=== PATIENT | male | born 1980 | race African-American/Black ===

== ENCOUNTER 2018-09-28 12:23 | Emergency (ER) | payer SELFPAY ==
[2018-09-28 13:36] LABS: #Basophils 0.1 thou/uL (0.0-0.2); #Eosinphils 0.4 thou/uL (0.0-0.7); #Monocytes 0.5 thou/uL (0.11-0.59); #Neutrophils 2.5 thou/uL (1.40-6.50); %Basophils 2.1 % (0.0-1.0); %Eosinophils 6.2 % (0.0-10.0); %Lymphocytes 45.7 % (21.0-51.0); %Monocytes 6.9 % (0.0-10.0); %Neutrophils 39.1 % (42.0-75.0); Hemoglobin 15.5 g/dL (14.0-18.0); Mean Corpuscular HGB CONC 32.1 g/dL (32.0-36.0); Mean Corpuscular Hemoglobin 28.6 pg (27.0-31.0); Mean Corpuscular Volume 88.9 fL (78.0-98.0); Mean Platelet Volume 7.8 fL (7.4-10.4); Platelet Count 254 thou/uL (130-400); RBC Distribution Width 14.2 % (11.5-14.5); Red Blood Cell (RBC) Count 5.41 mill/uL (4.70-6.10); White Blood Cell (WBC) Count 6.5 thou/uL (4.8-10.8)
--- NOTE | 2018-09-28 13:49 | RAD ---
CHEST 1 VIEW: Date: 09/28/18 Time: 1327 hours HISTORY: Chest pain. FINDINGS: Comparison made with exam of 06/28/14. The heart size is normal. There is scarring of the left costophrenic angle. No focal areas of consoli dation, pneumothoraces, or pleural effusions are seen. IMPRESSION: No acute process. POS: [facility]
[2018-09-28 13:59] LABS: ALT (SGPT) 25 U/L (8-55); AST (SGOT) 40 U/L (5-34); Albumin 4.1 g/dL (3.5-5.0); Alkaline Phosphatase 44 U/L (40-150); Anion Gap 12 mmol/L (10-20); BUN (Urea Nitrogen) 13 mg/dL (8.9-20.6); Bilirubin, Total 0.2 mg/dL (0.2-1.2); CK (CPK) 2751 U/L (30-200); Calc. Creatinine Clearance 0 mL/min (70-130); Calcium 9.1 mg/dL (7.8-10.44); Carbon Dioxide 24 mmol/L (22-29); Chloride 105 mmol/L (98-107); Estimated GFR-MDRD Greater than 90; Globulin 2.5 g/dL (2.4-3.5); Glucose 88 mg/dL (70-105); Potassium 4.4 mmol/L (3.5-5.1); Protein, Total 6.6 g/dL (6.0-8.3); Sodium 137 mmol/L (136-145)
[2018-09-28 14:14] LABS: CKMB 8.7 ng/mL (0-6.6)
[2018-09-28] MEDS ORDERED: Nitroglycerin 0.4 MG TAB 1 EACH ONE (14:17)
== END 2018-09-28 17:29 | disposition left against medical advice (07) ==
LOC: ERS 12:23
DX: R07.89 Other chest pain (principal); I10 Essential (primary) hypertension; F17.290 Nicotine dependence, other tobacco product, uncomplicated
CPT/HCPCS: 36415; 71045; 80053; 82550; 82553; 84484; 85025; 93005; 94760; 96360

== ENCOUNTER 2019-04-18 21:37 | Emergency (ER) | payer OTHER, SELFPAY ==
--- NOTE | 2019-04-18 22:31 | RAD ---
XR Chest 1 View Portable HISTORY: Chest pain and hypertension. COMPARISON: 09/28/2018 study. FINDINGS: Heart size and mediastinum are within normal limits. Slight elevation the left hemidiaphrag m with chronic blunting to the left costophrenic angle. The right lung is clear. IMPRESSION: No active intrathoracic
[2019-04-18 22:48] LABS: Hemoglobin 13.5 g/dL (14.0-18.0); Mean Corpuscular HGB CONC 32.3 g/dL (32.0-36.0); Mean Corpuscular Hemoglobin 26.8 pg (27.0-31.0); Mean Platelet Volume 8.6 fL (7.4-10.4); Platelet Count 240 thou/uL (130-400); RBC Distribution Width 13.7 % (11.5-14.5); Red Blood Cell (RBC) Count 5.05 mill/uL (4.70-6.10); White Blood Cell (WBC) Count 5.6 thou/uL (4.8-10.8)
[2019-04-18 23:09] LABS: ALT (SGPT) 21 U/L (8-55); AST (SGOT) 35 U/L (5-34); Albumin 4.6 g/dL (3.5-5.0); Alkaline Phosphatase 49 U/L (40-150); Anion Gap 12 mmol/L (10-20); BUN (Urea Nitrogen) 9 mg/dL (8.9-20.6); Bilirubin, Total 0.3 mg/dL (0.2-1.2); Calc. Creatinine Clearance 0 mL/min (70-130); Calcium 9.6 mg/dL (7.8-10.44); Carbon Dioxide 26 mmol/L (22-29); Chloride 105 mmol/L (98-107); Estimated GFR-MDRD 80; Globulin 2.5 g/dL (2.4-3.5); Glucose 84 mg/dL (70-105); Lipase 30 U/L (8-78); Potassium 4.5 mmol/L (3.5-5.1); Protein, Total 7.1 g/dL (6.0-8.3); Sodium 138 mmol/L (136-145)
[2019-04-18 23:15] LABS: Eosinophils 2 % (0-10); Hypochromia SLIGHT = 6-15 cells (100X) (0-5/hpf); Lymphocytes 48 % (21-51); MDiff Complete? YES; Monocytes 12 % (0-10); Neutrophil 38 % (42-75); Platelet Morphology Comment Appears Adequate
[2019-04-19 01:55] LABS: Troponin I Less than 0.010 ng/mL (< 0.028)
== END 2019-04-19 02:51 ==
LOC: ERS 21:37
DX: R07.9 Chest pain, unspecified (principal); R42 Dizziness and giddiness; F41.9 Anxiety disorder, unspecified; F17.290 Nicotine dependence, other tobacco product, uncomplicated
CPT/HCPCS: 36415; 71045; 80053; 83690; 84484; 85025; 93005

== ENCOUNTER 2019-10-07 18:34 | Emergency (ER) | payer SELFPAY ==
[2019-10-07 20:06] LABS: #Basophils 0.1 thou/uL (0.0-0.2); #Eosinphils 0.6 thou/uL (0.0-0.7); #Monocytes 0.6 thou/uL (0.11-0.59); #Neutrophils 3.5 thou/uL (1.40-6.50); %Basophils 1.6 % (0.0-1.0); %Lymphocytes 37.8 % (21.0-51.0); %Monocytes 7.6 % (0.0-10.0); %Neutrophils 44.9 % (42.0-75.0); Hemoglobin 13.5 g/dL (14.0-18.0); Mean Corpuscular HGB CONC 31.6 g/dL (32.0-36.0); Mean Corpuscular Hemoglobin 26.9 pg (27.0-31.0); Mean Corpuscular Volume 85.1 fL (78.0-98.0); Mean Platelet Volume 8.8 fL (7.4-10.4); Platelet Count 286 thou/uL (130-400); RBC Distribution Width 15.2 % (11.5-14.5); Red Blood Cell (RBC) Count 5.03 mill/uL (4.70-6.10); White Blood Cell (WBC) Count 7.8 thou/uL (4.8-10.8)
[2019-10-07 20:32] LABS: ALT (SGPT) 15 U/L (8-55); AST (SGOT) 22 U/L (5-34); Albumin 4.3 g/dL (3.5-5.0); Alkaline Phosphatase 44 U/L (40-110); Anion Gap 11 mmol/L (10-20); BUN (Urea Nitrogen) 13 mg/dL (8.9-20.6); Bilirubin, Total 0.2 mg/dL (0.2-1.2); Calc. Creatinine Clearance 0 mL/min (70-130); Calcium 8.9 mg/dL (7.8-10.44); Carbon Dioxide 28 mmol/L (22-29); Chloride 107 mmol/L (98-107); Estimated GFR-MDRD 64; Globulin 2.4 g/dL (2.4-3.5); Glucose 82 mg/dL (70-105); Protein, Total 6.7 g/dL (6.0-8.3); Sodium 142 mmol/L (136-145)
[2019-10-07 20:34] LABS: Acetaminophen Less than 6.0 mcg/mL (10.0-30.0); Alcohol Less than 10 mg/dL (Less than 10); CK (CPK) 735 U/L (30-200); Salicylate Less than 8.0 mg/dL (15.0-30.0)
[2019-10-07 20:42] LABS: Bilirubin Negative (Negative); Blood, Urine Negative (Negative); Clarity Turbid (Clear); Glucose, Urine (Dipstick) Normal (Negative); Leukocyte Negative Leu/uL (Negative); Nitrite Negative (Negative); Protein, Urine (Dipstick) 20 mg/dL (Neg-Trace); Urobilinogen 3 mg/dL (Less than 2)
[2019-10-07 20:57] LABS: Amphetamine Not Detected (NotDetected); Barbiturates Screen Not Detected (NotDetected); Benzodiazepine Screen Not Detected (NotDetected); Cocaine Metabolite Screen Not Detected (NotDetected); Medtox Control Line Valid? VALID (VALID); Medtox Reader # READER 4; Methadone Not Detected (NotDetected); Methamphetamine Not Detected (NotDetected); Opiate Screen Not Detected (NotDetected); Oxycodone Screen Not Detected (NotDetected); Phencyclidine (PCP) Not Detected (NotDetected); THC/Cannabinoid Screen Not Detected (NotDetected); Tricyclic Screen Detected (NotDetected)
[2019-10-07] MEDS ORDERED: hydrOXYzine Pamoate 25 mg Capsule ONE (23:01)
[2019-10-08] MEDS ORDERED: Nicotine 14 MG PATCH ONE ×2 (00:06→22:38)
[2019-10-08] MEDS ORDERED: Acetaminophen 325 MG TAB ONE (18:46)
[2019-10-09] MEDS ORDERED: diphenhydrAMINE 25 MG CAP ONE (00:36)
[2019-10-09] MEDS ORDERED: Bupropion 150 MG XL TAB PO SCH (09:00)
[2019-10-09] MEDS ORDERED: QUEtiapine Fumarate ER 50 MG TAB PO SCH ×2 (09:00→21:00)
[2019-10-09] MEDS ORDERED: Ziprasidone 60 MG CAP PO SCH (09:00)
== END 2019-10-10 20:38 ==
LOC: ERS 18:34
DX: R45.851 Suicidal ideations (principal); F41.9 Anxiety disorder, unspecified; F32.9 Major depressive disorder, single episode, unspecified; F20.9 Schizophrenia, unspecified; F17.210 Nicotine dependence, cigarettes, uncomplicated; Z79.899 Other long term (current) drug therapy
CPT/HCPCS: 36415; 80053; 80306; 80307; 81003; 82550; 84443; 85025; 93005; Q0177

== ENCOUNTER 2019-10-26 22:02 | Emergency (ER) | payer SELFPAY ==
[2019-10-26] MEDS ORDERED: Azithromycin 250 MG TAB ONE (22:51)
[2019-10-26] MEDS ORDERED: Lidocaine 1% PF 5 ML VIAL ONE (22:51)
[2019-10-26] MEDS ORDERED: cefTRIAXone\\ROCEPHIN 250 MG VIAL ONE (22:51)
[2019-10-26 22:54] LABS: Bilirubin Negative (Negative); Blood, Urine Negative (Negative); Clarity Clear (Clear); Glucose, Urine (Dipstick) 200 mg/dL (Negative); Leukocyte Negative Leu/uL (Negative); Nitrite Negative (Negative); Protein, Urine (Dipstick) 20 mg/dL (Neg-Trace); Urobilinogen Normal mg/dL (Less than 2)
[2019-10-28 20:06] LABS: Chlam.trachomatis by PCR,Urine Not Detected (NotDetected)
== END 2019-10-26 23:17 | disposition home or self-care (01) ==
LOC: ERS 22:02
DX: N34.2 Other urethritis (principal); F41.9 Anxiety disorder, unspecified; F31.9 Bipolar disorder, unspecified; F20.9 Schizophrenia, unspecified; F17.210 Nicotine dependence, cigarettes, uncomplicated; Z71.6 Tobacco abuse counseling; Z79.899 Other long term (current) drug therapy
CPT/HCPCS: 81003; 87491; 87591; 96372; 99406; J0696; J2001

== ENCOUNTER 2019-10-29 10:41 | Observation (INO) | payer SELFPAY ==
--- NOTE | 2019-10-29 11:15 | RAD ---
Chest AP view INDICATION: Chest pain and headache COMPARISON: Prior exam dated April 18, 2019 FINDINGS: Lungs: There is persistent elevation the left hemidiaphragm with minimal left basilar atelectasis Cardiac silhouette: The cardiomediastinal silhouette appears within normal limits. Pulmonary vasculature: Normal Pleural spaces: No pleural effusion or pneumothorax is demonstrated. Upper abdomen: No abnormality seen. Osseous structures: No acute osseous abnormality. Additional findings: None. IMPRESSION: No acute cardiopulmonary abnormality.
[2019-10-29] MEDS ORDERED: Acetaminophen 325 MG TAB ONE (11:18)
[2019-10-29 11:19] LABS: #Basophils 0.1 thou/uL (0.0-0.2); #Eosinphils 0.1 thou/uL (0.0-0.7); #Lymphocytes 1.8 thou/uL (1.20-3.40); #Monocytes 0.9 thou/uL (0.11-0.59); #Neutrophils 8.1 thou/uL (1.40-6.50); %Basophils 0.5 % (0.0-1.0); %Eosinophils 0.8 % (0.0-10.0); %Lymphocytes 16.4 % (21.0-51.0); %Monocytes 7.9 % (0.0-10.0); %Neutrophils 74.4 % (42.0-75.0); Hemoglobin 14.1 g/dL (14.0-18.0); Mean Corpuscular HGB CONC 32.7 g/dL (32.0-36.0); Mean Corpuscular Hemoglobin 27.7 pg (27.0-31.0); Mean Corpuscular Volume 84.8 fL (78.0-98.0); Mean Platelet Volume 9.1 fL (7.4-10.4); Platelet Count 297 thou/uL (130-400); RBC Distribution Width 15.5 % (11.5-14.5); White Blood Cell (WBC) Count 10.8 thou/uL (4.8-10.8)
--- NOTE | 2019-10-29 11:24 | CT ---
EXAM: CT brain without contrast HISTORY: Constant headache that began 2 days ago COMPARISON: None TECHNIQUE: Multiple contiguous axial images were obtained and a CT of the brain without contrast. FINDINGS: The brain is normal in morphology and attenuation without focal lesions or confluent areas of infarction. A cavum septum pellucidum is incidentally seen. There is no evidence of hydrocephalus, intracranial hemorrhage, or extra-axial fluid collection. The calvarium and overlying soft tissues are unremarkable. The visualized paranasal sinuses and masto id air cells are well aerated. IMPRESSION: No evidence of acute intracranial abnormality
[2019-10-29 11:33] LABS: ALT (SGPT) 64 U/L (8-55); AST (SGOT) 113 U/L (5-34); Albumin 5.1 g/dL (3.5-5.0); Alkaline Phosphatase 56 U/L (40-110); Anion Gap 19 mmol/L (10-20); BUN (Urea Nitrogen) 20 mg/dL (8.9-20.6); Bilirubin, Total 0.8 mg/dL (0.2-1.2); Calc. Creatinine Clearance 0 mL/min (70-130); Calcium 9.9 mg/dL (7.8-10.44); Carbon Dioxide 21 mmol/L (22-29); Chloride 103 mmol/L (98-107); Estimated GFR-MDRD 82; Glucose 76 mg/dL (70-105); Lipase 31 U/L (8-78); Potassium 4.6 mmol/L (3.5-5.1); Protein, Total 8.1 g/dL (6.0-8.3); Sodium 138 mmol/L (136-145)
[2019-10-29 11:34] LABS: Acetaminophen Less than 6.0 mcg/mL (10.0-30.0); Alcohol Less than 10 mg/dL (Less than 10); Salicylate Less than 8.0 mg/dL (15.0-30.0)
[2019-10-29 12:29] LABS: Amphetamine Detected (NotDetected); Barbiturates Screen Not Detected (NotDetected); Benzodiazepine Screen Not Detected (NotDetected); Cocaine Metabolite Screen Not Detected (NotDetected); Medtox Reader # READER 1; Methadone Not Detected (NotDetected); Methamphetamine Detected (NotDetected); Opiate Screen Not Detected (NotDetected); Oxycodone Screen Not Detected (NotDetected); Phencyclidine (PCP) Not Detected (NotDetected); THC/Cannabinoid Screen Not Detected (NotDetected); Tricyclic Screen Not Detected (NotDetected)
[2019-10-29 12:30] LABS: Medtox Control Line Valid? VALID (VALID)
[2019-10-29] MEDS ORDERED: HYDROcodone/Acetaminophen 5/325 mg Tablet PO PRN (13:18)
[2019-10-29] MEDS ORDERED: Ondansetron PF 4 MG/2 ML Vial IVP PRN (13:18)
[2019-10-29] MEDS ORDERED: Nicotine 14 MG PATCH TD PRN (13:18)
[2019-10-29] MEDS ORDERED: Acetaminophen 325 MG TAB PO PRN (13:18)
[2019-10-29] MEDS ORDERED: Ondansetron ODT 4 MG TAB PO PRN (13:18)
[2019-10-29] MEDS ORDERED: HYDROcodone/Acetaminophen 7.5/325 mg Tablet PO PRN (13:18)
[2019-10-29] MEDS ORDERED: Bisacodyl 10 MG SUPP PR PRN (13:18)
[2019-10-29] MEDS ORDERED: Labetalol HCl 100 MG/20 ML VIAL SLOW IVP PRN (13:20)
[2019-10-29] MEDS ORDERED: hydrALAZINE 20 MG/ML VIAL SLOW IVP PRN (13:20)
[2019-10-29] MEDS ORDERED: Benzonatate 100 MG CAP PO PRN (13:20)
[2019-10-29] MEDS ORDERED: Melatonin 3 MG TAB PO PRN (13:20)
[2019-10-29] MEDS ORDERED: Docusate 100 MG CAP PO PRN (13:20)
[2019-10-29] MEDS ORDERED: diphenhydrAMINE 25 MG CAP PO PRN (13:20)
[2019-10-29] MEDS ORDERED: Morphine 2 MG/ML SYRINGE SLOW IVP PRN (13:21)
[2019-10-29] MEDS ORDERED: Nitroglycerin 0.4 MG TAB (25 Tab Bottle) SL PRN (13:21)
[2019-10-29 14:48] LABS: Troponin I 0.016 ng/mL (< 0.028)
--- NOTE | 2019-10-29 15:21 | PDOC.HHP ---
Hospitalist HPI - History of Present Illness Chest pain History of Present Illness: Mr. Arguello is a pleasant 39-year-old -Citizen Of The [place] male with past medical history of hypertension, depression, hyperlipidemia, Possible TIA x2, and tobacco use who presents with chest pain. Patient states that he said two days of chest pain it is to the left of sternum and feels sharpen intensity lasting 15 to 20 minutes. Patient with associated diaphoresis and shortness of breath. Patient did get nauseated though he did not have any episodes of vomiting. Patient states that his father had a heart attack at a young age and it runs in his family. I find the patient in the emergency department he is laying flat in mild acute distress. Patient is anxious and states that he is concerned about his chest pain. Patient's review of systems is otherwise negative. With patient significant risk factors he was recommended admitted to the metal call unit with telemetry and nuclear medicine stress test rule out reversible ischemia. Hospitalist ROS - Review of Systems All other systems reviewed; all pertinent +/- noted in HPI/Subj Hospitalist History - Past Medical History Source: patient Cardiac: reports: HTN, Hyperlipidemia - Past Surgical History Past Surgical History: reports: Cholecystectomy, Other (2015 ruptured intestines , galbladder removal, chest tubes for collapsed lung) - Family History Family History: reports: cardiac disorder, cerebrovascular accident, hypertension - Social History Smoking Status: Current every day smoker Tobacco Type: chewing tobacco Alcohol: reports: Rare Drugs: reports: none Living Situation: With Family Domestic Violence: Negative Activity level: independent ambulation - Exam General Appearance: NAD General - other findings: Anxious Eye: PERRL, anicteric sclera ENT: normocephalic atraumatic, moist mucosa Neck: supple, symmetric, no lymphadenopathy Heart: RRR, no murmur, no gallops, no rubs, normal peripheral pulses Respiratory: CTAB, no wheezes, no rales, no ronchi, normal chest expansion, no tachypnea Gastrointestinal: soft, non-tender, non-distended, no guarding, no rigidity Extremities: no edema Skin: no lesions, no rashes Skin - other findings: Left flank healed chest tube site incisions Neurological: cranial nerve grossly intact, no focal deficits Musculoskeletal: normal tone, normal strength Psychiatric: normal affect, normal behavior, A&O x 3 Hospitalist Results - Labs Result Diagrams: 10/29/19 11:05 10/29/19 11:05 Lab results: WBC 10.8 thou/uL (4.8-10.8) 10/29/19 11:05 Hgb 14.1 g/dL (14.0-18.0) 10/29/19 11:05 Hct 43.2 % (42.0-52.0) 10/29/19 11:05 MCV 84.8 fL (78.0-98.0) 10/29/19 11:05 Plt Count 297 thou/uL (130-400) 10/29/19 11:05 Neutrophils % 74.4 % (42.0-75.0) 10/29/19 11:05 Sodium 138 mmol/L (136-145) 10/29/19 11:05 Potassium 4.6 mmol/L (3.5-5.1) 10/29/19 11:05 Chloride 103 mmol/L (98-107) 10/29/19 11:05 Carbon Dioxide 21 mmol/L (22-29) L 10/29/19 11:05 BUN 20 mg/dL (8.9-20.6) 10/29/19 11:05 Creatinine 1.20 mg/dL (0.7-1.3) 10/29/19 11:05 Glucose 76 mg/dL (70-105) 10/29/19 11:05 Calcium 9.9 mg/dL (7.8-10.44) 10/29/19 11:05 Total Bilirubin 0.8 mg/dL (0.2-1.2) 10/29/19 11:05 AST 113 U/L (5-34) H 10/29/19 11:05 ALT 64 U/L (8-55) H 10/29/19 11:05 Alkaline Phosphatase 56 U/L (40-110) 10/29/19 11:05 Troponin I 0.016 ng/mL (< 0.028) 10/29/19 14:09 Serum Total Protein 8.1 g/dL (6.0-8.3) 10/29/19 11:05 Albumin 5.1 g/dL (3.5-5.0) H 10/29/19 11:05 Lipase 31 U/L (8-78) 10/29/19 11:05 - Radiology Interpretation Chest x-ray Status: image reviewed by me Hospitalist H&P A/P - Problem (1) Chest pain Code(s): R07.9 - CHEST PAIN, UNSPECIFIED Status: Acute (2) HTN (hypertension) Code(s): I10 - ESSENTIAL (PRIMARY) HYPERTENSION Status: Acute (3) HLD (hyperlipidemia) Code(s): E78.5 - HYPERLIPIDEMIA, UNSPECIFIED Status: Acute (4) Diaphoresis Code(s): R61 - GENERALIZED HYPERHIDROSIS Status: Acute (5) Tobacco abuse Code(s): Z72.0 - TOBACCO USE Status: Acute (6) Hx-TIA (transient ischemic attack) Code(s): Z86.73 - PRSNL HX OF TIA (TIA), AND CEREB INFRC W/O RESID DEFICITS Status: Acute - Plan Plan: Plan: admit to medical unit with telemetry nuclear medicine stress test to rule out reversible ischemia morphine, oxygen, nitrates, aspirin consider cardiology consult pending above workup continuous telemetry to monitor for arrhythmia blood pressure control, adjust medications as needed continue other home medications as able blood sugar control G.I. prophylaxis DVT prophylaxis
[2019-10-29] MEDS ORDERED: Aspirin 325 MG TAB ONE (15:27)
[2019-10-29 17:58] LABS: Troponin I 0.013 ng/mL (< 0.028)
[2019-10-29 21:48] VITALS: BMI 32.9
[2019-10-29] MEDS ORDERED: Divalproex Sodium DR 500 MG TAB PO SCH (22:45)
[2019-10-29] MEDS ORDERED: Gabapentin 400 MG CAP PO SCH (23:00)
[2019-10-29] MEDS ORDERED: Ziprasidone 60 MG CAP PO SCH (23:00)
[2019-10-29] MEDS: Famotidine 20 MG TAB PO SCH (23:08)
[2019-10-29] MEDS: Carvedilol 3.125 MG TAB PO SCH (23:09)
[2019-10-30] MEDS ORDERED: Ziprasidone 60 MG CAP PO SCH (09:00)
[2019-10-30] MEDS ORDERED: Divalproex Sodium DR 500 MG TAB PO SCH (09:00)
[2019-10-30] MEDS ORDERED: Losartan 25 MG TAB PO SCH ×2 (09:00)
[2019-10-30] MEDS ORDERED: Bupropion 150 MG XL TAB PO SCH (09:00)
[2019-10-30] MEDS ORDERED: Gabapentin 400 MG CAP PO SCH (09:00)
[2019-10-30] MEDS: Carvedilol 3.125 MG TAB PO SCH (09:09)
[2019-10-30] MEDS: Famotidine 20 MG TAB PO SCH (09:14)
[2019-10-30] MEDS ORDERED: ADENOSINE 60 MG/20 ML VIAL ONE (10:53)
--- NOTE | 2019-10-30 13:35 | NM ---
MYOCARDIAL PERFUSION SCAN: The patient was given 33 mCi of technetium sestamibi for stress imaging and 10 mCi for rest imaging. INDICATION: Chest pain. Patient was stressed according to Adenosine protocol. FINDINGS: Left ventricle was imaged with SPECT imaging and CT attenuation performed. There is normal activity throughout the left ventricle on stress and rest images. No evidence of rev ersible ischemia. Wall motion shows mild global hypokinesis. Ejection fraction is recorded at 49%. IMPRESSION: No evidence of reversible ischemia. POS: [facility]
--- NOTE | 2019-10-30 14:53 | PDOC.HOSPP ---
- Subjective Encounter Date: 10/30/19 Encounter Time: 14:52 Subjective: Mr. Arguello was seen today in follow-u of headache and chest pain. He says he continues to have a headache off and on. Currently no complaints. - Objective Vital Signs & Weight: Vital Signs (12 hours) Temp Pulse Resp BP Pulse Ox 10/30/19 14:01 97.3 F L 70 18 111/82 98 10/30/19 08:10 97.6 F 82 20 131/88 97 10/30/19 03:59 97.8 F 90 18 131/74 98 Weight Admit Weight 236 lb Weight 236 lb 2 oz Result Diagrams: 10/29/19 11:05 10/29/19 11:05 Hospitalist ROS - Medication Medications: Active Medications Generic Name Dose Route Start Last Admin Trade Name Freq PRN Reason Stop Dose Admin Bupropion HCl 150 mg 10/30/19 09:00 10/30/19 09:13 Wellbutrin Xl PO 150 mg DAILY SUMIT Administration Carvedilol 3.125 mg 10/29/19 17:00 10/30/19 09:09 Coreg PO Not Given BID-WM SUMIT Divalproex Sodium 500 mg 10/30/19 09:00 10/30/19 09:13 Depakote PO 500 mg BID SUMIT Administration Famotidine 20 mg 10/29/19 21:00 10/30/19 09:14 Pepcid PO 20 mg BID SUMIT Administration Gabapentin 800 mg 10/30/19 09:00 10/30/19 09:14 Neurontin PO 800 mg BID SUMIT Administration Losartan Potassium 100 mg 10/30/19 09:00 10/30/19 09:15 Cozaar PO 100 mg DAILY SUMIT Administration Losartan Potassium 100 mg 10/30/19 09:00 10/30/19 09:08 Cozaar PO Not Given DAILY SUMIT Pantoprazole Sodium 40 mg 10/30/19 09:00 10/30/19 09:16 Protonix PO 40 mg DAILY SUMIT Administration Quetiapine Fumarate 50 mg 10/30/19 09:00 10/30/19 09:16 Seroquel PO 50 mg DAILY SUMIT Administration Ziprasidone 60 mg 10/30/19 09:00 10/30/19 09:17 Geodon PO 60 mg BID SUMIT Administration - Exam Eye: PERRL Heart: RRR, no murmur, no gallops, no rubs, normal peripheral pulses Respiratory: CTAB, no wheezes, no rales, no ronchi, normal chest expansion, no tachypnea, normal percussion Gastrointestinal: soft, non-tender, non-distended, normal bowel sounds, no palpable masses, no hepatomegaly, no splenomegaly Extremities: no cyanosis, no clubbing, no edema Hosp A/P (1) Methamphetamine abuse Code(s): F15.10 - OTHER STIMULANT ABUSE, UNCOMPLICATED Status: Acute (2) Chest pain Code(s): R07.9 - CHEST PAIN, UNSPECIFIED Status: Acute (3) HTN (hypertension) Code(s): I10 - ESSENTIAL (PRIMARY) HYPERTENSION Status: Chronic - Plan * Stress test was negative * He is stable for discharge home * Avoid elicit drug use
[2019-10-30 15:59] VITALS: BP 144/79; TEMP 98.1
--- NOTE | 2019-10-31 03:30 | DIS ---
DATE OF ADMISSION: 10/29/2019 DATE OF DISCHARGE: 10/30/2019 The patient does not have a primary care physician. DISCHARGE DISPOSITION: Home. DISCHARGE DIAGNOSES: 1. Headache. 2. Chest pain. 3. Methamphetamine abuse. 4. Hypertension. 5. Hyperlipidemia. DISCHARGE MEDICATIONS: Include: 1. Fiorinal 1 tablet q.4 as needed for headache. 2. Geodon 60 mg twice daily. 3. Seroquel 50 mg in the a.m. and 200 mg at bedtime. 4. Protonix 40 mg daily. 5. Losartan 100 mg daily. 6. Gabapentin 800 mg twice a day. 7. Depakote 500 mg twice daily. 8. Wellbutrin XL 150 mg daily. CODE STATUS: Full code. ALLERGIES: NO KNOWN DRUG ALLERGIES. IMAGING DONE DURING THE HOSPITAL STAY: The patient had a CT scan of the brain, which was negative for any acute intracranial process. The patient also had a nuclear stress test, which was negative for any reversible ischemia. HOSPITAL COURSE: Mr. Arguello is a pleasant 39-year-old gentleman, who presented to the emergency room complaining of chest pain as well as headache. The full details of which are outlined in the history and physical. He was placed in observation, ruled out. Stress test was negative, and it is likely that the chest pain as well as the headache could be related to methamphetamine abuse. He was given recommendations to discontinue this, also recommendations to follow up at a primary care physician clinic or physician in the area, and he is subsequently being discharged home today. Job ID: [id number]
== END 2019-10-30 16:38 | disposition home or self-care (01) ==
LOC: ERS 10:41 → ERHOLD 13:21 → EEVIPCON 13:21 → 2SW 22:05
PROVIDERS: ADMIT Internal Medicine; ATTEND Internal Medicine
DX: R07.9 Chest pain, unspecified (principal); R51 Headache; F15.10 Other stimulant abuse, uncomplicated; I10 Essential (primary) hypertension; E78.5 Hyperlipidemia, unspecified; F17.220 Nicotine dependence, chewing tobacco, uncomplicated; F41.9 Anxiety disorder, unspecified; F20.9 Schizophrenia, unspecified; F31.9 Bipolar disorder, unspecified; Z86.73 Personal history of transient ischemic attack (TIA), and cerebral infarction without residual deficits; Z79.899 Other long term (current) drug therapy
CPT/HCPCS: 36415; 70450; 71045; 78452; 80053; 80306; 80307; 83690; 84443; 84484; 85025; 93005; 93017; 96360; A9500; G0378; J0153

== ENCOUNTER → 2019-10-30 | Emergency (ER) | payer SELFPAY ==
[~2019-10-30] MED LIST: Acetaminophen 325 MG TAB ONE; Bupropion 150 MG XL TAB PO SCH; Gabapentin 400 MG CAP PO SCH; Haloperidol 1 MG TAB ONE; Ibuprofen 200 MG TAB ONE; Losartan 25 MG TAB PO SCH; Nicotine 21 MG PATCH TOP SCH
[2019-10-30 20:24] LABS: #Basophils 0.1 thou/uL (0.0-0.2); #Eosinphils 0.8 thou/uL (0.0-0.7); #Lymphocytes 2.7 thou/uL (1.20-3.40); #Monocytes 0.7 thou/uL (0.11-0.59); #Neutrophils 3.3 thou/uL (1.40-6.50); %Basophils 1.3 % (0.0-1.0); %Eosinophils 10.2 % (0.0-10.0); %Lymphocytes 35.8 % (21.0-51.0); %Monocytes 8.6 % (0.0-10.0); Hemoglobin 13.7 g/dL (14.0-18.0); Mean Corpuscular HGB CONC 32.7 g/dL (32.0-36.0); Mean Corpuscular Hemoglobin 28.2 pg (27.0-31.0); Mean Corpuscular Volume 86.2 fL (78.0-98.0); Mean Platelet Volume 8.2 fL (7.4-10.4); Platelet Count 298 thou/uL (130-400); RBC Distribution Width 15.5 % (11.5-14.5); Red Blood Cell (RBC) Count 4.88 mill/uL (4.70-6.10); White Blood Cell (WBC) Count 7.5 thou/uL (4.8-10.8)
[2019-10-30 20:44] LABS: Acetaminophen Less than 6.0 mcg/mL (10.0-30.0); Alcohol Less than 10 mg/dL (Less than 10); Salicylate Less than 8.0 mg/dL (15.0-30.0)
[2019-10-30 20:45] LABS: ALT (SGPT) 43 U/L (8-55); AST (SGOT) 48 U/L (5-34); Albumin 4.3 g/dL (3.5-5.0); Alkaline Phosphatase 52 U/L (40-110); Anion Gap 13 mmol/L (10-20); BUN (Urea Nitrogen) 17 mg/dL (8.9-20.6); Bilirubin, Total 0.3 mg/dL (0.2-1.2); Calc. Creatinine Clearance 0 mL/min (70-130); Carbon Dioxide 25 mmol/L (22-29); Chloride 106 mmol/L (98-107); Estimated GFR-MDRD 78; Globulin 2.7 g/dL (2.4-3.5); Glucose 94 mg/dL (70-105); Potassium 3.9 mmol/L (3.5-5.1); Sodium 140 mmol/L (136-145)
[2019-10-30 20:57] LABS: Amphetamine Detected (NotDetected); Barbiturates Screen Not Detected (NotDetected); Benzodiazepine Screen Not Detected (NotDetected); Cocaine Metabolite Screen Not Detected (NotDetected); Medtox Control Line Valid? VALID (VALID); Medtox Reader # READER 4; Methadone Not Detected (NotDetected); Methamphetamine Not Detected (NotDetected); Opiate Screen Not Detected (NotDetected); Oxycodone Screen Not Detected (NotDetected); Phencyclidine (PCP) Not Detected (NotDetected); THC/Cannabinoid Screen Not Detected (NotDetected); Tricyclic Screen Detected (NotDetected)
== END ==
LOC: ERS 19:36
DX: F31.9 Bipolar disorder, unspecified (principal); F41.9 Anxiety disorder, unspecified; F20.9 Schizophrenia, unspecified; F17.210 Nicotine dependence, cigarettes, uncomplicated; Z79.899 Other long term (current) drug therapy
CPT/HCPCS: 36415; 80053; 80306; 80307; 84443; 85025; 93005